=== PATIENT | male | born 1990 | race Caucasian/White ===

== ENCOUNTER 2016-05-25 13:56 | Emergency (ER) | payer MEDICAID ==
[2015-07-22 08:08] VITALS: BMI 19.9
[~2016-05-25 13:56] MED LIST: HYDROCODONE-APA1 TAB PO
== END 2016-05-25 16:47 | disposition home or self-care (01) ==
LOC: D.ER 13:56
DX: T14.8 Other injury of unspecified body region (principal); Y04.2XXA Assault by strike against or bumped into by another person, initial encounter; Y93.89 Activity, other specified; Y92.89 Other specified places as the place of occurrence of the external cause; F90.9 Attention-deficit hyperactivity disorder, unspecified type; F17.200 Nicotine dependence, unspecified, uncomplicated

== ENCOUNTER 2016-07-29 13:43 | Emergency (ER) | payer MEDICAID ==
[2015-07-22 08:08] VITALS: BMI 19.9
== END 2016-07-29 15:30 | disposition home or self-care (01) ==
LOC: D.ER 13:43
DX: S05.01XA Injury of conjunctiva and corneal abrasion without foreign body, right eye, initial encounter (principal); X58.XXXA Exposure to other specified factors, initial encounter

== ENCOUNTER 2016-08-24 11:27 | Emergency (ER) | payer MEDICAID ==
[2015-07-22 08:08] VITALS: BMI 19.9
== END 2016-08-24 14:30 | disposition home or self-care (01) ==
LOC: D.ER 11:27
DX: M25.551 Pain in right hip (principal); V89.2XXA Person injured in unspecified motor-vehicle accident, traffic, initial encounter; Y93.89 Activity, other specified; Y92.89 Other specified places as the place of occurrence of the external cause; F90.9 Attention-deficit hyperactivity disorder, unspecified type

== ENCOUNTER 2016-10-10 19:35 | Inpatient (IN) | payer MEDICAID ==
[~2016-10-10] VITALS: Ht 188 cm; Wt 68.2 kg
[2016-10-10 20:32] LABS: BASOPHILS 0.2 % (0-2); EOSINOPHILS 0.7 % (0-7); HEMATOCRIT 43.5 % (42.0-54.0); HEMOGLOBIN 15.4 g/dL (13.5-17.5); IMMATURE GRANULOCYTES 0.2 % (0-5); LYMPHOCYTES 19.1 % (15-50); MCH 32.3 pg (26.0-34.0); MCHC 35.4 g/dL (31.0-37.0); MCV 91.2 fL (80.0-100.0); MEAN PLATELET VOLUME 10.1 fL (7.4-10.4); MONOCYTES 7.9 % (2-11); NEUTROPHILS 71.9 % (40-80); PLATELET COUNT 242 10x3/uL (130-400); RBC 4.77 10x6/uL (4.20-6.10); RDW 13.4 % (11.5-14.5); WBC 12.6 10x3/uL (4.8-10.8)
[2016-10-10 20:40] LABS: INR 1.01 (0.85-1.17); PROTIME 13.2 SECONDS (11.6-15.0)
[2016-10-10 20:54] LABS: ALBUMIN 4.2 g/dL (3.4-5.0); ALKALINE PHOSPHATASE 95 U/L (46-116); ALT (SGPT) 27 U/L (10-68); BILIRUBIN - TOTAL 0.55 mg/dL (0.2-1.3); CALC OSMOLALITY 277 mosm/kg (275-300); CHLORIDE - SERUM 101 mmol/L (98-107); GLUCOSE 98 mg/dL (74-106); POTASSIUM - SERUM 3.2 mmol/L (3.5-5.1); PROTEIN - SERUM 7.6 g/dL (6.4-8.2); SODIUM 139 mmol/L (136-145); UREA NITROGEN 12 mg/dL (7-18); eGFR NON AFRICAN AMERICAN > 90 mL/min (90-120)
[2016-10-11] VITALS (14 sets, daily range): BP systolic 116–146; BP diastolic 71–89; Ht 188 cm; Wt 68.2 kg
--- NOTE | 2016-10-11 00:34 | NUR ---
CRYING OUT IN PAIN RATES PAIN LEVEL #10. OXY IR 10MG PO GIVEN FOR PAIN CONTROL PER GURJIT TIMMONS.
--- NOTE | 2016-10-11 02:00 | NUR ---
REC'D TO ROOM 2215 PER BED FROM PACU A 26 Y/O W/M PER SERVICES DR. HONG POST OP ORIF WITH NAILING TO RT LEG DELFIN WRAP TO RT LEG PPP+ ELEVATED ON PILLOWS ICE BAG PLACED TO LEG. GIRLFRIEND AT BEDSIDE. IV LEFT HAND SALINE LOCK.IV LEFT ARM OF LR AT 50CC'S/HR SITES CLEAR. HOB UP 30 DEGREES. SR UP X2 CALL LIGHT WITHIN REACH PT IS AROUSEABLE BUT SEDATED. O2 ON 2L/M PER NC.
--- NOTE | 2016-10-11 03:00 | NUR ---
MONITORING VS AND O2 SATS.
--- NOTE | 2016-10-11 04:30 | NUR ---
PATIENT YELLING AND CRYING IN PAIN PAIN WAS UNRELIEVED WITH PO MEDS. DILAUDID 1MG IVP GIVEN FOR PAIN CONTROL. PATIENT HAS NOT VOIDED AND STATES DOES NOT NEED TO EITHER.
--- NOTE | 2016-10-11 05:30 | NUR ---
EYES CLOSED RESPIRATIONS WITH EASE AND UNLABORED.
--- NOTE | 2016-10-11 07:26 | NUR ---
REPORT RECEIVED FROM COMPASS OPERATOR NURSE. CALL LIGHT IN REACH.
--- NOTE | 2016-10-11 07:37 | NUR ---
NO CHANGES IN ASSESSMENT.
--- NOTE | 2016-10-11 08:26 | NUR ---
ASSESSMENT COMPLETED. CRYING OUT IN PAIN. DILAUDID 1 MG SIVP. ATARAX PO. REFUSED COLACE. GIRLFRIED IN ROOM. CALL LIGHT IN REACH. WILL CONTINUE WITH PLAN OF CARE.
--- NOTE | 2016-10-11 09:29 | NUR ---
IN BED WITH EYES CLOSED. RESP EVEN AND UNLABORED. CALL LIGHT IN REACH.
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
--- NOTE | 2016-10-11 11:08 | NUR ---
DILAUDID 1 MG SIVP PER C/O PAIN. CALL LIGHT IN REACH.
--- NOTE | 2016-10-11 13:13 | NUR ---
OXY IR AND ATARAX PO. ZINACEF IVPB. SPOKE WITH MOTHER ABOUT PATIENT'S CARE.
--- NOTE | 2016-10-11 15:20 | NUR ---
RESTING WITH EYES CLOSED. RESP EVEN AND UNLABORED. CALL LIGHT IN REACH.
--- NOTE | 2016-10-11 16:39 | NUR ---
C/O PAIN OF 10. DILAUDID IVP. GIRLFRIEND IN ROOM. CALL LIGHT IN REACH.
--- NOTE | 2016-10-11 18:00 | NUR ---
NO CHANGES IN INITIAL ASSESSMENT. CALL LIGHT IN REACH. WILL CONTINUE WITH PLAN OF CARE.
--- NOTE | 2016-10-11 19:17 | NUR ---
REPOSITIONED LEG. OZXY IR AND ATARAX PO.
--- NOTE | 2016-10-11 21:10 | NUR ---
PT RV DETAILER LIGHT AT 2109 WANTING HIS PAIN SHOT. ADMINISTERED DILAUDID AND ATARAX NOT DUE UNTIL 99. PT GIVEN ICE PACK TO RELIEVE PAIN WELL. BED IN LOW POSITION, CALL LIGHT IN REACH
--- NOTE | 2016-10-11 23:24 | NUR ---
PT LYING IN BED EYES CLOSED. EVEN RISE AND FALL OF CHEST, NO SIGNS OF DISTRESS. WILL CONTINUE TO MONITOR
[2016-10-12] VITALS: BP 130/73
[2016-10-12 04:00] VITALS: BP 128/62
[2016-10-12 05:10] LABS: HEMATOCRIT 36.6 % (42.0-54.0); HEMOGLOBIN 12.6 g/dL (13.5-17.5)
--- NOTE | 2016-10-12 05:52 | NUR ---
PATIENT IN BED WITH EYES CLOSED RESTING QUIETLY AT THIS TIME. IV INTACT. CALL LIGHT WITHIN REACH.
--- NOTE | 2016-10-12 06:07 | NUR ---
AFTER REVIEWING MORNING LABS, PT K+ IS AT 3.2, ORDERED ELECTROLYTE PROTOCOL AND WILL CONTINUE PLAN OF CARE
--- NOTE | 2016-10-12 07:13 | NUR ---
REPORT RECEIVED FROM MEDICAL SERVICES MANAGER NURSE. CALL LIGHT IN REACH.
[2016-10-12 08:32] VITALS: BP 132/58
--- NOTE | 2016-10-12 09:10 | NUR ---
ASSESSMENT COMPLETED. OXY IR PO. REFUSES COLACE AND LOVENOX. CALL LIGHT IN REACH. WILL CONTINUE WITH PLAN OF CARE.
--- NOTE | 2016-10-12 11:25 | NUR ---
DILAUDID SIVP FOR PAIN OF 10. CALL LIGHT IN REACH.
[2016-10-12 12:09] VITALS: BP 107/71
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
--- NOTE | 2016-10-12 13:45 | NUR ---
PATIENT UP AMBULATING IN HALLWAY WITH PT. NO SIGNS OF DISTRESS NOTED.
--- NOTE | 2016-10-12 13:59 | NUR ---
REQUESTING PAIN MEDS. OXY IR 10 M GPO. CALL LIGHT IN REACH.
[2016-10-12] MEDS ORDERED: OXYCODONE HCL5 MG PO (14:51)
[2016-10-12] MEDS ORDERED: ATARAX 25 MG TA25 MG PO (14:51)
[2016-10-12] MEDS ORDERED: ASPIRIN325 MG PO (14:52)
[2016-10-12] MEDS ORDERED: DURICEF500 MG PO (14:52)
--- NOTE | 2016-10-12 15:50 | NUR ---
DRSGs CHANGED PER MD ORDER.
--- NOTE | 2016-10-12 16:47 | NUR ---
DC INSTRUCTIONS EXPLAINED TO PATIENT AND SIGNIFICANT OTHER. VERBALIZED UNDERSTANDING. RXs GIVEN TO PATIENT.
--- NOTE | 2016-10-12 17:19 | NUR ---
DC'D TO VEHICLE VIA WC.
== END 2016-10-12 17:19 | disposition home or self-care (01) | DRG 563 ==
LOC: D.OPS 19:35 → D.ER 19:35 → EDSTATUS 22:15 → D.MS 22:43 → D.OPS 10-11 00:55 → D.MS 10-11 01:08
PROVIDERS: Nurse Practitioner Acute Care; ADMIT Orthopaedic Surgery
PROC: 0QSG3ZZ Reposition Right Tibia, Percutaneous Approach (ICD-10-PCS; principal; 2016-10-11)
DX: S82.251A Displaced comminuted fracture of shaft of right tibia, initial encounter for closed fracture (principal); S82.451A Displaced comminuted fracture of shaft of right fibula, initial encounter for closed fracture; V28.4XXA Motorcycle driver injured in noncollision transport accident in traffic accident, initial encounter; F90.9 Attention-deficit hyperactivity disorder, unspecified type; F17.200 Nicotine dependence, unspecified, uncomplicated

== ENCOUNTER 2017-01-07 10:32 | Emergency (ER) | payer MEDICAID ==
[2016-10-11 02:41] VITALS: BMI 19.3
[~2017-01-07 10:32] MED LIST changes: +ASPIRIN325 MG PO; +ATARAX 25 MG TA25 MG PO; +DURICEF500 MG PO; +OXYCODONE HCL5 MG PO
== END 2017-01-07 14:14 | disposition home or self-care (01) ==
LOC: D.ER 10:32
DX: G47.00 Insomnia, unspecified (principal); F43.22 Adjustment disorder with anxiety; F90.9 Attention-deficit hyperactivity disorder, unspecified type; F17.200 Nicotine dependence, unspecified, uncomplicated

== ENCOUNTER → 2018-08-12 | Emergency (ER) | payer SELFPAY ==
[~2018-08-12] VITALS: Ht 188 cm; Wt 68.2 kg
[2018-08-12 05:39] VITALS: Ht 188 cm; Wt 68.2 kg
[2018-08-12 06:25] LABS: BASOPHILS 0.2 % (0-2); EOSINOPHILS 5.1 % (0-7); HEMATOCRIT 43.2 % (42.0-54.0); HEMOGLOBIN 15.1 g/dL (13.5-17.5); IMMATURE GRANULOCYTES 0.2 % (0-5); LYMPHOCYTES 32.8 % (15-50); MCH 31.9 pg (26.0-34.0); MCV 91.1 fL (80.0-100.0); MEAN PLATELET VOLUME 9.8 fL (7.4-10.4); MONOCYTES 8.6 % (2-11); NEUTROPHILS 53.1 % (40-80); RBC 4.74 10x6/uL (4.20-6.10); RDW 12.5 % (11.5-14.5); WBC 8.5 10x3/uL (4.8-10.8)
[2018-08-12 06:36] LABS: ALBUMIN 3.8 g/dL (3.4-5.0); ALKALINE PHOSPHATASE 94 U/L (46-116); ALT (SGPT) 30 U/L (10-68); BILIRUBIN - TOTAL 0.13 mg/dL (0.2-1.3); CALC OSMOLALITY 291 mosm/kg (275-300); CALCIUM 8.8 mg/dL (8.5-10.1); CARBON DIOXIDE 28.2 mmol/L (21.0-32.0); CHLORIDE - SERUM 110 mmol/L (98-107); CREATININE - SERUM 0.8 mg/dL (0.6-1.3); GLUCOSE 96 mg/dL (74-106); PROTEIN - SERUM 7.1 g/dL (6.4-8.2); SODIUM 147 mmol/L (136-145); UREA NITROGEN 12 mg/dL (7-18); eGFR NON AFRICAN AMERICAN > 90 mL/min (90-120)
[2018-08-12 07:01] VITALS: BP 112/52
[2018-08-12 07:19] LABS: PLATELET COUNT 178 10x3/uL (130-400)
[2018-08-12 07:43] LABS: UDS - AMPHET POSITIVE QUAL (NEGATIVE); UDS - BARB NEGATIVE QUAL (NEGATIVE); UDS - BENZO NEGATIVE QUAL (NEGATIVE); UDS - COCAINE NEGATIVE QUAL (NEGATIVE); UDS - OPIATE NEGATIVE QUAL (NEGATIVE); UDS - PCP NEGATIVE QUAL (NEGATIVE); UDS - THC NEGATIVE QUAL (NEGATIVE)
[2018-08-12 07:50] LABS: APPEARANCE CLEAR (CLEAR); BILIRUBIN NEGATIVE (NEGATIVE); COLOR STRAW (YELLOW); GLUCOSE NEGATIVE (NEGATIVE); KETONE NEGATIVE (NEGATIVE); NITRITE NEGATIVE (NEGATIVE); PROTEIN NEGATIVE (NEGATIVE); UROBILINOGEN NORMAL (NORMAL)
== END | disposition home or self-care (01) ==
LOC: D.ER 05:34
PROVIDERS: Family Medicine
DX: F10.129 Alcohol abuse with intoxication, unspecified (principal); F15.10 Other stimulant abuse, uncomplicated; F19.129 Other psychoactive substance abuse with intoxication, unspecified

== ENCOUNTER 2018-12-03 14:40 | Emergency (ER) | payer MEDICAID ==
[~2018-12-03] VITALS: Ht 188 cm; Wt 68.2 kg
[2018-12-03 14:46] VITALS: BP 119/75; Ht 188 cm; Wt 68.2 kg
[2018-12-03] MEDS ORDERED: SUBOXONE 2 MG-01 TAB SL (14:47)
[2018-12-03] MEDS ORDERED: ABILIFY10 MG PO (14:48)
[2018-12-03] MEDS ORDERED: CELEXA20 MG PO (14:48)
--- NOTE | 2018-12-03 15:53 | NUR ---
PT DENIES SI. PT STATED THAT HE DID GET TX FOR DEPRESSION AND "BAD THOUGHTS" 5 YEARS AGO. ASSESSED A LOW RISK. RESOURCES GIVEN AND REVIEWED WITH PT. PT STATED UNDERSTANDING. REPORTED SCORE TO ATTENDING AND NURSE. PT DID NOT WANT THIS NURSE TALKING TO HIS MOTHER ABOUT HIS CARE. EXPLAINED THIS TO PT'S MOTHER. PT ADMITS TO DRINKING EARLIER IN THE DAY.
== END 2018-12-03 16:41 | disposition home or self-care (01) ==
LOC: D.ER 14:40
DX: S01.81XA Laceration without foreign body of other part of head, initial encounter (principal); W19.XXXA Unspecified fall, initial encounter

== ENCOUNTER 2019-07-24 09:43 | Emergency (ER) | payer SELFPAY ==
[~2019-07-24] VITALS: Ht 188 cm; Wt 86.4 kg
[~2019-07-24 09:43] MED LIST changes: +ABILIFY10 MG PO; +CELEXA20 MG PO; +SUBOXONE 2 MG-01 TAB SL
[2019-07-24 09:49] VITALS: Ht 188 cm; Wt 86.4 kg
[2019-07-24] MEDS ORDERED: NAPROSYN500 MG PO (10:20)
[2019-07-24 10:32] VITALS: BP 132/76
== END 2019-07-24 10:32 | disposition home or self-care (01) ==
LOC: D.ER 09:43
DX: S99.922A Unspecified injury of left foot, initial encounter (principal); S90.32XA Contusion of left foot, initial encounter; S61.012A Laceration without foreign body of left thumb without damage to nail, initial encounter; V00.138A Other skateboard accident, initial encounter; Y93.51 Activity, roller skating (inline) and skateboarding; Y92.9 Unspecified place or not applicable

== ENCOUNTER → 2020-05-02 | Emergency (ER) | payer SELFPAY ==
[~2020-05-02] VITALS: Ht 188 cm; Wt 80.0 kg
[~2020-05-02] MED LIST changes: +KLONOPIN0.5 MG PO; +NAPROSYN500 MG PO; +PROPRANOLOL HCL20 MG PO
[2020-05-02 17:48] VITALS: BP 131/69; Ht 188 cm; Wt 80.0 kg
[2020-05-02 18:27] LABS: BASOPHILS 0.3 % (0-2); EOSINOPHILS 2.5 % (0-7); HEMATOCRIT 44.1 % (42.0-54.0); HEMOGLOBIN 15.3 g/dL (13.5-17.5); IMMATURE GRANULOCYTES 0.5 % (0-5); LYMPHOCYTE ABS# 1.86 10x3/uL (1.32-3.57); LYMPHOCYTES 16.8 % (15-50); MCH 32.9 pg (26.0-34.0); MCHC 34.7 g/dL (31.0-37.0); MCV 94.8 fL (80.0-100.0); MEAN PLATELET VOLUME 9.5 fL (7.4-10.4); MONOCYTES 8.9 % (2-11); NEUTROPHIL ABS# 7.87 10x3/uL (1.78-5.38); RBC 4.65 10x6/uL (4.20-6.10); WBC 11.1 10x3/uL (4.8-10.8)
[2020-05-02 18:30] LABS: PLATELET COUNT 223 10x3/uL (130-400)
[2020-05-02 18:35] LABS: CALC OSMOLALITY 289 mosm/kg (275-300); CALCIUM 8.4 mg/dL (8.5-10.1); CARBON DIOXIDE 27.3 mmol/L (21.0-32.0); CHLORIDE - SERUM 107 mmol/L (98-107); CREATININE - SERUM 0.8 mg/dL (0.6-1.3); GLUCOSE 98 mg/dL (74-106); POTASSIUM - SERUM 3.9 mmol/L (3.5-5.1); SODIUM 146 mmol/L (136-145); UREA NITROGEN 10 mg/dL (7-18); eGFR NON AFRICAN AMERICAN > 90 mL/min (90-120)
[2020-05-02 18:42] LABS: ALBUMIN 4.1 g/dL (3.4-5.0); ALKALINE PHOSPHATASE 85 U/L (30-120); ALT (SGPT) 29 U/L (10-68); PROTEIN - SERUM 7.3 g/dL (6.4-8.2)
== END | disposition home or self-care (01) ==
LOC: D.ER 17:47
PROVIDERS: Family Medicine
DX: I10 Essential (primary) hypertension (principal); V89.2XXA Person injured in unspecified motor-vehicle accident, traffic, initial encounter